=== PATIENT | female | born 1970 | race Caucasian/White ===

== ENCOUNTER 2019-03-27 12:23 | Outpatient (CLI) | payer OTHER ==
--- NOTE | 2019-03-27 14:14 | RAD ---
PA AND LATERAL CHEST: 03/27/19 HISTORY: Cough. Heart size and mediastinum are within normal limits. The lungs are clear of any focal infiltrates. A dorsal column stimulator is present. IMPRESSION: No active intrathoracic disease. POS: [facility]
== END 2019-03-27 12:24 | disposition home or self-care (01) ==
LOC: BURRAD 12:23
PROVIDERS: ATTEND Nurse Practitioner Family
DX: J44.9 Chronic obstructive pulmonary disease, unspecified (principal); R05 Cough
CPT/HCPCS: 71046

== ENCOUNTER → 2019-05-08 | Emergency (ER) | payer OTHER ==
[~2019-05-08] MED LIST: EPINEPHrine 1 MG/ML AMP ONE; methylPREDNISolone Sod Succ/PF 125 MG/2 ML VIAL ONE
== END ==
LOC: BURERS 06:14
DX: L50.0 Allergic urticaria (principal); J44.9 Chronic obstructive pulmonary disease, unspecified; Z79.899 Other long term (current) drug therapy
CPT/HCPCS: 96372; 99282; J0171; J2930